=== PATIENT | male | born 1955 | race Hispanic/Latino ===

== ENCOUNTER 2016-11-14 19:04 | Emergency (ER) | payer OTHER ==
[~2016-11-14] VITALS: Ht 165.1 cm; Wt 81.8 kg
[~2016-11-14 19:04] MED LIST: OMEP20CA11 PO
[2016-11-14 19:08] VITALS: BP 138/79; PULSE 70; RESP 16; O2SAT 98
--- NOTE | 2016-11-14 19:24 | ED.REPORT ---
HPI-Chest Pain 40 and Over Date of Service Nov 14, 2016 ED Provider: Dr. Romeo The pt is a 61 y/o male with no pertinent hx who presents to the ED complaining of non-radiating left sided chest pain that lasts about a minute, onset 5 hours ago. He describes it as a sharp, intermittent pain that comes every hour. His pain is not modified by left arm movement or other activity. He denies shortness of breath and any other sx at this time. Nursing Notes Stated Complaint: CHEST PAIN Chief Complaint: Chest Pain Nursing Notes Reviewed: Yes Allergies: Coded Allergies: No Known Allergies (Verified Allergy, Unknown, 11/14/16) Scheduled Omeprazole (Omeprazole) 20 Mg Capsule.dr 20 MG PO DAILY General Time Seen by MD: 19:23 Chief Complaint Chest pain Hx Obtained From: Patient Arrived By: Walk-in Sudden in Onset?: Yes Onset Occurred: 5 - 8 hours ago Symptom Duration: Intermittent Location: : Chest left Quality: Sharp Radiation: : Does not radiate Severity: Current: Mild Severity: Maximum: Moderate Recent Healthcare: No recent doctor visit Similar Sx Previous: No Past Medical History Past Medical History none reported Past Surgical History none reported Smoking History Unknown if Ever Smoker Ambulatory Status Independent Review of Systems Respiratory: Denies: Shortness of breath Cardiovascular: Reports: Chest pain Complete sys rev & neg: except as marked. Physical Exam Initial Vital Signs Vital Signs (First) Date Time Temp Pulse Resp B/P Pulse Ox O2 Delivery O2 Flow Rate FiO2 11/14/16 19:08 36.6 70 16 138/79 98 Room Air Initial VS: Reviewed Head / Eyes: Atraumatic, Normocephalic Neck: Supple, Non-tender, Full range of motion Extremities: Vascular intact, Neuro intact, No swelling, No tenderness Skin: Warm, Dry, No cyanosis Neurologic: Alert, Oriented, Nonfocal General/Constitutional: Awake, Alert, No acute distress, Well appearing, Cooperative Respiratory / Chest: Atraumatic, Breath sounds NL, Breath sounds = bilat, No respiratory distress, No rales, No rhonchi, No wheezing Cardiovascular: Heart rate NL, Regular rhythm, Heart sounds NL, No gallop, No murmurs, No rubs Abdomen: Atraumatic, Soft, Non-tender, No guarding, No rebound Interpretation & Diagnostics Lab Results Interpretation Result Diagram: [id number]/192911/[id number] Test 11/14/16 19:30 White Blood Count 7.2th/mm3 (3.8-10.1) Red Blood Count 4.90mil/mm3 (4.40-5.80) Hemoglobin 14.8g/dL (13.8-17.2) Hematocrit 41.3% (41.0-50.0) Mean Corpuscular Volume 84.3fL (81-100) Mean Corpuscular Hemoglobin 30.2pg (27.0-35.0) Mean Corpuscular Hemoglobin Concent 35.8% (32.0-37.0) Red Cell Distribution Width 13.4% (12.3-15.4) Platelet Count 290bil/L (150-400) Neutrophils (%) (Auto) 60.1% (40-74) Lymphocytes (%) (Auto) 30.2% (14-46) Monocytes (%) (Auto) 6.0% (4-12) Eosinophils (%) (Auto) 3.2% (0-5) Basophils (%) (Auto) 0.4% (0-3) Sodium Level 139mEq/L (134-144) Potassium Level 4.2mEq/L (3.5-5.2) Chloride Level 102mEq/L (97-108) Carbon Dioxide Level 22mmol/L (18-29) Blood Urea Nitrogen 15mg/dL (8-27) Creatinine 0.76mg/dL (0.76-1.27) Estimat Glomerular Filtration Rate 111mL/min (>59) Glucose Level 111mg/dL (60-99) Calcium Level 9.5mg/dL (8.5-10.1) Magnesium Level 2.3mg/dL (1.6-2.6) Total Bilirubin 0.3mg/dL (0.0-1.2) Aspartate Amino Transf (AST/SGOT) 21U/L (0-50) Alanine Aminotransferase (ALT/SGPT) 17U/L (0-44) Alkaline Phosphatase 105U/L (25-160) Troponin T < 0.010ug/L (0.0-0.011) Total Protein 7.6g/dL (6.4-8.4) Albumin 4.4g/dL (3.4-5.0) Hold High Top Tube Received (Received) ECG Interpretation ECG Interpretation: Normal sinus rhythm. Rate 72. Time: 19:20 Interpreted by: ED physician X-Ray Chest Interpretation Chest Xray Interpretation: IMPRESSION: No acute cardiopulmonary disease process. Dictated by: Heidy Diaz MD, PhD on 11/14/2016 at 19:43 Approved by: Heidy Diaz MD, PhD on 11/14/2016 at 19:44 View: Portable, 1 view Interpretation / Wet Read by: Interpret - Radiologist Re-Eval/Medical Decision Med Decision/Clinical Course Heart score of 1, pain is transient and fleeting. Not consistent with acute coronary syndrome. Unlikely to be PE given the very transient duration of symptoms and normal vital signs and no particular risk factors for PE. Recommended to take baby aspirin daily. Follow-up with an outpatient provider for further exam. Return and follow-up precautions given. Time of Eval: 20:39 Re-Evaluation/Progress Note: Rechecked pt. Discussed lab results, imaging results, diagnosis and plan to discharge. Pt understands and agrees with the plan. F/U instruction and RTER warning given. All questions addressed. Counseled Regarding: Diagnosis, Lab results, Need for follow-up, When/why to return to ED Discharge & Departure Primary Impression: Chest pain Disposition: Home Discharge Condition All VS Reviewed: Yes Condition: Stable Patient Instructions: Angina (ED) Additional Instructions: Your workup in the ER is reassuring. Follow-up with the primary care doctor for further evaluation. Begin taking aspirin 81 mg daily. Return to the ER as needed for persistent chest pain, trouble breathing, or other concerns. Referrals: [facility] (PCP) Scribe Attestation Portions of this note were transcribed by Shannen Brown. I,, personally performed the history,physical exam and medical decision-making;I reviewed and confirmed the accuracy of the information in the transcribed note. Signed by Geovani Quinteros. 11/14/16 copies to: [facility] Vicente Romeo DO Nov 14, 2016 19:24 Shannen Brown Nov 14, 2016 19:48
[2016-11-14 19:44] LABS: BASOPHILS % (AUTO) 0.4 % (0-3); EOSINOPHILS % (AUTO) 3.2 % (0-5); Mean Corpuscular Hemoglobin 30.2 pg (27.0-35.0); Mean Corpuscular Volume 84.3 fL (81-100); NEUTROPHILS % (AUTO) 60.1 % (40-74); Platelet Count 290 bil/L (150-400)
--- NOTE | 2016-11-14 19:45 | DRSVH ---
PROCEDURE: X-RAY CHEST ONE VIEW, PORTABLE ([id number]) INDICATIONS: CHEST PAIN TECHNIQUE: One view of the chest was acquired. COMPARISON: None. FINDINGS: Surgical changes and devices: None. Lungs and pleura: No pleural effusions or pneumothorax. Lungs are clear. Mediastinum: Mediastinal contours appear normal. Heart size is normal. Bones and chest wall: No suspicious bony lesions. Overlying soft tissues appear unremarkable. IMPRESSION: No acute cardiopulmonary disease process. Dictated by: Heidy Diaz MD, PhD on 11/14/2016 at 19:43 Approved by: Heidy Diaz MD, PhD on 11/14/2016 at 19:44
[2016-11-14 20:06] LABS: TROPONIN T < 0.010 ug/L (0.0-0.011)
[2016-11-14 20:15] LABS: Magnesium 2.3 mg/dL (1.6-2.6)
[2016-11-14 21:00] VITALS: BP 118/64; PULSE 74; RESP 18; O2SAT 98
== END 2016-11-14 20:59 | disposition home or self-care (01) ==
LOC: SED 19:04
DX: R07.9 Chest pain, unspecified (principal)